=== PATIENT | male | born 1955 | race Caucasian/White ===

== ENCOUNTER 2016-04-30 12:17 | Emergency (ER) | payer BC ==
[~2016-04-30 12:17] MED LIST: ASPIRIN EC81 MG PO; CARVEDILOL25 MG PO; COUMADIN5 MG PO; DELTASONE DPS10 MG PO; DUONEB DPS3 ML IH; VIBRAMYCIN-DPS100 M2 PO; ZESTRIL DPS20 MG PO; ZOCOR80 MG PO
--- NOTE | 2016-05-04 13:23 | ER ---
ADMIT: 04/30/2016 RM/LOC: ER [facility] MR#: [id number] [id number] [address] [place] [address] Emergency Room Report SEX: M AGE: 60 : 1955 DATE: 04/30/2016 ADDENDUM: This patient comes to the ER because he has a sudden onset of pain in his right chest and his right back that radiates into his shoulder. He states he had cancer and had to have a radical neck surgery, and he states they took some of the tissue from behind his ribs, which he will often get a muscle spasm type pain in his chest on the right side. It hurts when he moves a certain way and move when I palpate on his chest. I gave him Valium and Toradol, which did relieve his pain as long as he did not move, however, during his stay, his blood pressure became very low. IV of normal saline was started. He was given a liter of bolus, which did improve his blood pressure. His cardiac enzymes were normal. Chest x-ray was normal. We did do an EKG, which did have some abnormalities, but when we compared with the last EKG was similar. I did consult with Dr. Jade concerning treatment of this patient. I wrote a prescription for Valium, and we will have him follow up with Dr. Baeza as needed. DIAGNOSIS: Chest wall pain. Please see my T-sheet. DYLAN Cali / Yumiko Jade MD / josel JOB #: [id number] CC: Vj Rodriguez MD, Attending Physician Radha Baeza MD, Family Physician
[2016-09-04] MEDS ORDERED: SYMBICORT160 MCG/6 IH (14:36)
[2016-09-04] MEDS ORDERED: OXY IR DPS5 MG PO (14:36)
[2016-09-04] MEDS ORDERED: TYLENOL DPS325 MG PO (14:37)
[2016-09-04] MEDS ORDERED: VALIUM-DPS5 MG PO (14:37)
[2016-09-04] MEDS ORDERED: PROVENTIL HFA6.7 GM IH (14:37)
[2016-09-04] MEDS ORDERED: THERAPEUTIC MUL1 TAB PO (14:38)
[2016-09-04] MEDS ORDERED: ZITHROMAX250 MG PO (14:38)
== END 2016-04-30 16:15 | disposition home or self-care (01) ==
LOC: ER 12:17
DX: R07.89 Other chest pain (principal); M25.512 Pain in left shoulder; I10 Essential (primary) hypertension; Z88.5 Allergy status to narcotic agent; Z79.01 Long term (current) use of anticoagulants; Z79.82 Long term (current) use of aspirin; Z79.899 Other long term (current) drug therapy